=== PATIENT | female | born 1980 | race African-American/Black ===

== ENCOUNTER 2016-07-09 08:51 | Emergency (ER) ==
--- NOTE | 2016-07-09 10:12 | PROVIDER DOCUMENTATION ---
HPI-General Adult - General Chief Complaint: Abscess Stated Complaint: ABSCESS/INSECT BITE/STING Time Seen by Provider: 07/09/16 10:07 Source: patient Allergies/Adverse Reactions: Patient Allergies Allergy/AdvReac Type Severity Reaction Status Date / Time morphine Allergy Intermediate ITCHING Verified 10/07/15 12:27 Home Medications: Fluconazole [Diflucan] 200 mg PO DAILY 02/26/16 - History of Present Illness -Gen Adult Nature of Presenting Problems: Pt is 35 y/o F presents to the ED with possible abscess to inner upper R thigh. Pt states she has bad skin and has been going to the licensed psychologist manager for 2 to 3 weeks. Pt states no drainage. Location of Pain/Injury: reports: lower extremity (inner upper R thigh) Pain Radiation: reports: legs (lower) (R), legs (upper) (R) Quality of Pain: reports: aching, pressure Severity: reports: moderate Onset/Duration: reports: 3 days ago Timing: reports: still present, intermittent Context/Activities at Onset: reports: light activity Modifying Factors: improves with: nothing Associated Symptoms: reports: weakness (R leg). denies: anxiety, arm pain, back /neck pain, chest pain, cough, dizziness, fever/chills, nausea, shortness of breath, vomiting Similar Symptoms Previously?: Yes Recently seen or treated by another doctor?: No Review of Systems - Adult - REVIEW OF SYSTEMS - ADULT Constitutional: denies: chills, fever Eyes: denies: blurred vision, double vision Ears, Nose, Mouth & Throat: denies: ear pain, nose pain, throat pain Cardiovascular: denies: chest pain, heart murmur, irregular heart rate Respiratory: denies: cough, shortness of breath, wheezing Gastrointestinal: denies: abdominal pain, diarrhea, nausea, poor appetite, vomiting Genitourinary: denies: dysuria, hematuria Musculoskeletal: denies: bone pain, joint pain, neck pain Integumentary: denies: hives, itching Neurological: denies: dizziness/vertigo, headache/migraines Psychiatric: reports: no symptoms reported Endocrine: reports: no symptoms reported Hematologic/Lymphatic: reports: no symptoms reported Allergic/Immunologic: reports: no symptoms reported All Other Systems: Reviewed and Negative Past History - Adult - PAST MEDICAL HISTORY-ADULT Review of Records: reports: Nursing Assessment Review, Medications Reviewed, Social history reviewed & non-contributory. Major Childhood Illnesses: reports: denies history Cardiovascular: reports: denies history Respiratory: reports: asthma Gastrointestinal: reports: denies history Obstetrical/Gynecological: reports: denies history Genitourinary: reports: denies history Musculoskeletal: reports: chronic pain (in left thumb) Neurological: reports: denies history Endocrine/Immune: reports: other Other Conditions: reports: denies history - PRIOR SURGERIES/PROCEDURES Surgical/Procedure History: reports: BTL, , other (breast reduction and tubal ligation) - IMMUNIZATION STATUS Childhood Immunizations: See Nurse Assessment Flu Vaccine: See Nurse Assessment - FAMILY HISTORY Family History: reviewed, not pertinent - SOCIAL HISTORY Smoking: cigar, less than 1 pack/day Provider spent 3-5 mins advising pt. on dangers of tobacco.: Discussed manners to quit use, and f/u contacts for add'l counseling. Substance Use: alcohol Alcohol Use Frequency: occasionally Number of drinks per typical drinking period:: 3-4 drinks Living Situation: family Physical Exam-General - PHYSICAL EXAM-ADULT Initial Vital Signs Reviewed: Yes - CONSTITUTIONAL General Appearance: appears well, alert, mild distress - EYES Eyes: PERRL/EOMI, pink conjunctivae - HEAD, EARS, NOSE, MOUTH & THROAT HENMT: normocephalic/atraumatic, moist mucous membranes, normal ENT inspection - NECK Neck: non-tender, full range of motion, supple, normal inspection - RESPIRATORY Respiratory: chest non-tender, lungs clear, normal breath sounds - CARDIOVASCULAR Cardiovascular: normal peripheral pulses, regular rate, rhythm, no edema - GASTROINTESTINAL (ABDOMEN) Abdominal Exam: normal bowel sounds, non tender, soft - LYMPHATIC Lymphatic: no adenopathy - MUSCULOSKELETAL Back Exam: normal inspection, no CVA tenderness, no vertebral tenderness Extremity: normal range of motion, non-tender, normal gait - SKIN Integumentary: normal color, normal turgor, warm/dry, other (abscess to R upper inner thigh) - NEUROLOGIC Neurologic: program counselor II-XII nml as tested, grossly normal, no motor/sensory deficits - PSYCHIATRIC Psych/Mental Status: normal mood/affect, normal thought content, normal thought process, oriented x 3 Progress - PLAN OF CARE/RESULTS Progress/Plan/Lab Results: Vital Signs - 24 hr 07/09/16 09:00 Temperature 97.9 F Pulse Rate 68 Respiratory 18 Rate Blood Pressure 153/66 Departure - Departure Time of Disposition Order: 10:11 DIAGNOSIS: Cellulitis Qualifiers: Site of cellulitis: extremity Site of cellulitis of extremity: lower extremity Laterality: right Qualified Code(s): L03.115 - Cellulitis of right lower limb Disposition: HOME 01 Certified Medical Emergency: Emergent Condition: Stable Additional Instructions: ED Follow Up Instructions: You have been treated by a care provider in the Emergency Department. These instructions are being provided to you so you can have an understanding of how to care for yourself upon discharge. Upon discharge from the Emergency Department, you are responsible for making arrangements for follow-up care by a physician of your choice. Take all prescribed medications as directed. Return to the Emergency Department immediately for any new or worsening symptoms. You may call the Physician Referral phone number at [phone] to obtain a list of Physicians who are taking new patients. Attestation - Scribe Verification/Attestation Scribe:: Amanda Vivar Acting as Scribe for:: Tom Islas Scribe documention review:: This chart was documented by a scribe and accurately reflects the service the provider performed and the decisions made by the provider.
[2016-07-09 10:42] VITALS: BP 135/92
== END 2016-07-09 10:41 | disposition home or self-care (01) ==
LOC: P.ED 08:51
DX: L03.115 Cellulitis of right lower limb (principal); L02.415 Cutaneous abscess of right lower limb; M79.651 Pain in right thigh; M79.661 Pain in right lower leg; M62.81 Muscle weakness (generalized); G89.29 Other chronic pain; M79.645 Pain in left finger(s); F17.290 Nicotine dependence, other tobacco product, uncomplicated; Z79.899 Other long term (current) drug therapy; Z71.6 Tobacco abuse counseling; L50.9 Urticaria, unspecified; T37.0X5A Adverse effect of sulfonamides, initial encounter; L29.9 Pruritus, unspecified; R21 Rash and other nonspecific skin eruption
CPT/HCPCS: 99282; J0171; J1200

== ENCOUNTER 2016-07-09 16:41 | Emergency (ER) ==
[2016-07-09 17:16] VITALS: BP 144/99
[2016-07-09] MEDS ORDERED: BENADRYL IM ONE (17:27)
[2016-07-09] MEDS ORDERED: PEPCID PO ONE (17:27)
[2016-07-09] MEDS ORDERED: DECADRON IM ONE (17:27)
[2016-07-09] MEDS ORDERED: HYDROXYZINE PO ONE (18:25)
[2016-07-09] MEDS ORDERED: EPINEPHRINE SUBQ ONE (18:25)
--- NOTE | 2016-07-09 18:27 | PROVIDER DOCUMENTATION ---
HPI-Rash/Wound/ReCheck - General Chief Complaint: Allergic Reaction Stated Complaint: ALLERGIC REACTION Time Seen by Provider: 07/09/16 17:22 Source: patient Allergies/Adverse Reactions: Allergies Allergy/AdvReac Type Severity Reaction Status Date / Time morphine Allergy Intermediate ITCHING Verified 07/09/16 17:16 Home Medications: Fluconazole [Diflucan] 200 mg PO DAILY 02/26/16 - History of Present Illness-Dermatology Nature of Presenting Problem: Pt presents today c complaints of hives, itching and rash after taking bactrim earlier today for an abscess. No other issues or complaints. No respiratory distress. Location: reports: generalized Quality: reports: itchy Severity: reports: moderate Onset/Duration: reports: 1-3 hours ago Timing: reports: still present Context/Associated Symptoms: reports: rash Similar Symptoms Previously?: No Recently seen or treated by another doctor?: No Review of Systems - Adult - REVIEW OF SYSTEMS - ADULT Constitutional: reports: no symptoms reported. denies: chills, fever Eyes: reports: no symptoms reported. denies: discharge, dry eyes Ears, Nose, Mouth & Throat: reports: no symptoms reported. denies: ear discharge, ear pain Cardiovascular: reports: no symptoms reported. denies: chest pain, edema Respiratory: reports: no symptoms reported. denies: chronic cough, cough Gastrointestinal: reports: no symptoms reported. denies: abdominal pain, hematemesis Genitourinary: reports: no symptoms reported. denies: dysuria, discharge Musculoskeletal: reports: no symptoms reported. denies: bone pain, back pain Integumentary: reports: see HPI, hives, itching, rash. denies: mole changes, nail changes Neurological: reports: no symptoms reported. denies: ataxia, dizziness/vertigo Psychiatric: reports: no symptoms reported. denies: anxiety, anti-depressant use Endocrine: reports: no symptoms reported Hematologic/Lymphatic: reports: no symptoms reported Allergic/Immunologic: reports: no symptoms reported All Other Systems: Reviewed and Negative Past History - Adult - PAST MEDICAL HISTORY-ADULT Review of Records: reports: Old Records Reviewed, Nursing Assessment Review, Medications Reviewed, Social history reviewed & non-contributory. Major Childhood Illnesses: reports: denies history Cardiovascular: reports: denies history Respiratory: reports: asthma Gastrointestinal: reports: denies history Obstetrical/Gynecological: reports: denies history Genitourinary: reports: denies history Musculoskeletal: reports: chronic pain (in left thumb) Neurological: reports: denies history Endocrine/Immune: reports: other Other Conditions: reports: denies history - PRIOR SURGERIES/PROCEDURES Surgical/Procedure History: reports: BTL, , other (breast reduction and tubal ligation) - IMMUNIZATION STATUS Childhood Immunizations: See Nurse Assessment Flu Vaccine: See Nurse Assessment - FAMILY HISTORY Family History: reviewed, not pertinent Physical Exam-General - PHYSICAL EXAM-ADULT Initial Vital Signs Reviewed: Yes - CONSTITUTIONAL General Appearance: appears well, alert, no apparent distress. negative: lethargic, slow to respond - EYES Eyes: PERRL/EOMI, pink conjunctivae - HEAD, EARS, NOSE, MOUTH & THROAT HENMT: normocephalic/atraumatic, moist mucous membranes, normal ENT inspection. negative: pharyngeal erythema - NECK Neck: non-tender, full range of motion, normal inspection - RESPIRATORY Respiratory: chest non-tender, lungs clear, normal breath sounds. negative: stridor, wheezing - CARDIOVASCULAR Cardiovascular: normal peripheral pulses, regular rate, rhythm, no edema. negative: bradycardia, tachycardia - GASTROINTESTINAL (ABDOMEN) Abdominal Exam: normal bowel sounds, non tender, soft - LYMPHATIC Lymphatic: no adenopathy - MUSCULOSKELETAL Back Exam: normal inspection, no CVA tenderness, no vertebral tenderness Extremity: normal range of motion, non-tender, normal gait - SKIN Integumentary: normal turgor, warm/dry, rash - NEUROLOGIC Neurologic: grossly normal, no motor/sensory deficits - PSYCHIATRIC Psych/Mental Status: normal mood/affect, normal thought content, normal thought process, oriented x 3 Progress - PLAN OF CARE/RESULTS Progress/Plan/Lab Results: Orders Category Date Time Status Dexamethasone [Decadron] Med 07/09/16 17:27 Discontinued 10 mg IM NOW ONE Diphenhydramine [Benadryl] Med 07/09/16 17:27 Discontinued 50 mg IM NOW ONE Famotidine [Pepcid] Med 07/09/16 17:27 Discontinued 20 mg PO NOW ONE Vital Signs Temp Pulse Resp BP Pulse Ox 07/09/16 17:13 99.2 F 93 H 18 144/99 100 morphine Allergy (Intermediate, Verified 07/09/16 17:16) ITCHING Fluconazole [Diflucan] 200 mg PO DAILY 02/26/16 Sulfamethoxazole/Trimethoprim [Bactrim Ds Tablet] 1 each PO BID #10 tablet 02/25 Fluconazole [Diflucan] 150 mg PO DAILY #1 tablet 07/09/16 Hydrocodone/Acetaminophen [[place] 5-325 Tablet] 1 each PO Q6H PRN #20 tablet 03/17 Sulfamethoxazole/Trimethoprim [Bactrim Ds Tablet] 2 each PO BID #40 tablet 07/09 Pt feeling much better. Will d/c home. Departure - Departure Time of Disposition Order: 18:25 DIAGNOSIS: Hives Allergic reaction caused by a drug Qualifiers: Encounter type: initial encounter Qualified Code(s): T78.40XA - Allergy, unspecified, initial encounter Disposition: HOME Certified Medical Emergency: Urgent Condition: Good Additional Instructions: Take medication as prescribed. Follow up with your primary care provider. Stop taking bactrim. ED Follow Up Instructions: You have been treated by a care provider in the Emergency Department. These instructions are being provided to you so you can have an understanding of how to care for yourself upon discharge. Upon discharge from the Emergency Department, you are responsible for making arrangements for follow-up care by a physician of your choice. Take all prescribed medications as directed. Return to the Emergency Department immediately for any new or worsening symptoms. You may call the Physician Referral phone number at [phone] to obtain a list of Physicians who are taking new patients. Prescriptions: Clindamycin [Cleocin] 150 mg PO Q6HR #30 capsule Hydroxyzine [Atarax] 50 mg PO TID PRN #10 tablet PRN Reason: Itching Methylprednisolone [Medrol Dosepak] 4 mg PO DIRECTED #1 package Famotidine [Pepcid] 20 mg PO DAILY #20 tablet Referrals: Zac Uriarte MD [Primary Care Provider] - Attestation - Physician/ Mid-level Attestation Patient care was provided by Mid-level provider (HABILITATION ASSISTANT/PA):: Yes Mid-level provider:: Hood Blake Mid-level documentation review:: The Mid-level provider documentation, treatment plan and medical decision making was reviewed by the physician who agrees with all treatment and medical decision making by the MLP.
== END 2016-07-09 18:44 | disposition home or self-care (01) ==
LOC: P.ED 16:41
DX: L50.9 Urticaria, unspecified (principal); T37.0X5A Adverse effect of sulfonamides, initial encounter; L29.9 Pruritus, unspecified; R21 Rash and other nonspecific skin eruption; G89.29 Other chronic pain; M79.645 Pain in left finger(s); Z79.899 Other long term (current) drug therapy
CPT/HCPCS: 96372; J0171; J1200